=== PATIENT | female | born 2000 | race Caucasian/White ===

== ENCOUNTER 2021-12-21 18:49 | Emergency (ER) | payer OTHER, MEDICAID, SELFPAY ==
[2021-12-21 18:55] VITALS: BP 150/89; PULSE 71; RESP 16; TEMP 36.8; O2SAT 98; BMI 39.6
--- NOTE | 2021-12-21 19:22 | PC.NURSE ---
Pt clarified with this RN and Fuad MCGINNIS that she had her HCG drawn this AM. Pt had no previous HCG level drawn. Pt had US on the that showed no cardiac activity, but pt is requesting an US here today as a second opinion.
--- NOTE | 2021-12-21 19:37 | ED.RECABL ---
HPI - Recheck/Abnormal Lab/Rx General Chief Complaint: Recheck/Abnormal Lab/Rx Stated Complaint: 11 Wks wants to check baby heart beat Time Seen by Provider: 12/21/21 19:02 Source: patient and family Mode of arrival: Ambulatory Limitations: no limitations History of Present Illness HPI narrative: Patient is G1, P0 by LMP. She had mild spotting 2 weeks ago. She has no cramping, no sustained bleeding. She has no abdominal cramping. She has no nausea, vomiting diarrhea. She has no urinary complaints or vaginal complaints. An ultrasound was done 3 days ago as a new patient intake. There is a small hemorrhage. No heart tone was seen. Ultrasound is not consistent with a viable intrauterine . Follow-up labs today indicated today rather high HCG, this is the 1st hCG. There is no comparison. She has been told prepare for a miscarriage. She has questions about the hCG and ultrasound. She denies chronic illness, she has no acute signs or symptoms illness. Review of Systems Review of Systems ROS Unobtainable: All systems reviewed & are unremarkable except as noted in HPI and below Patient History Medical History (Updated 12/21/21 @ 19:44 by Fortino Moore MD) Healthy adult Social History Smoking Status: Never smoker Smoking Status: Never smoker Substance Use Type: does not use Exam Initial Vital Signs Initial Vital Signs: Vital Signs Temperature 98.3 F 12/21/21 18:55 Pulse Rate 71 12/21/21 18:55 Respiratory Rate 16 12/21/21 18:55 Blood Pressure 150/89 H 12/21/21 18:55 Pulse Oximetry 98 12/21/21 18:55 Oxygen Delivery Method 12/21/21 18:55 Const General: cooperative, healthy appearing, comfortable, well developed and well groomed GI Palpation: soft and No tender Back/Spine/Pelvis Back: No CVA tenderness Course Course Course Narrative: Her ultrasound report and labs are reviewed. Ultrasound is not consistent with a viable fetus. She is in no duress. Vital Signs Vital signs: Vital Signs - 8 hr 12/21/21 18:55 Temperature 98.3 F Pulse Rate 71 Respiratory Rate 16 Blood Pressure 150/89 H Pulse Oximetry 98 Oxygen Delivery Method Room Air Discharge Plan Departure Patient Disposition: Home Clinical Impression: Threatened miscarriage Instructions: DI for Miscarriage Activity Restrictions/Additional Instructions: As we discussed, ultrasound is highly suggestive that she will have a miscarriage. There is no heart tone. The baby is not developing. You would visually developed cramping and bleeding. Follow-up. We may assist. In the possibility that all the data is wrong, ask for a repeat ultrasound in 1 week if a miscarriage has not occurred. Visit Report Forms: Patient Portal/API
== END 2021-12-21 19:52 | disposition home or self-care (01) ==
PROVIDERS: Emergency Provider Emergency Medicine
DX: O20.0 Threatened abortion (principal)
CPT/HCPCS: 99281